=== PATIENT | female | born 1995 | race Two or more races ===

== ENCOUNTER 2018-03-04 22:34 | Emergency (ER) | payer MEDICAID ==
[~2018-03-04] VITALS: Ht 160 cm; Wt 99.8 kg
[2018-03-04 23:03] VITALS: BP 138/81
[2018-03-05] MEDS ORDERED: cefTRIAXone SOD 1,000 MG VL IM ONE (02:00)
[2018-03-05] MEDS ORDERED: LIDOCAINE 1% HCL (LOCAL ANESTH.) INJ 20ML MDV ONE (02:00)
[2018-03-05] MEDS ORDERED: TETANUS-DIPTH-ACEL PERTUSSIS 0.5ML SYRG IM ONE ×2 (02:00→02:07)
== END 2018-03-05 03:04 | disposition home or self-care (01) ==
LOC: ER 22:34
DX: S61.412A Laceration without foreign body of left hand, initial encounter (principal); W26.0XXA Contact with knife, initial encounter; Y93.89 Activity, other specified; Y99.8 Other external cause status; Y92.89 Other specified places as the place of occurrence of the external cause
CPT/HCPCS: 12042; 90471; 90715; 96372; 99284; J0696; J2001

== ENCOUNTER 2019-03-18 10:38 | Emergency (ER) | payer MEDICAID ==
[~2019-03-18] VITALS: Ht 160 cm; Wt 108.9 kg
[2019-03-18] MEDS ORDERED: ONDANSETRON ODT 4 MG TAB PO ONE (12:00)
[2019-03-18] MEDS ORDERED: HYDROcodone-ACET 10/325MG TAB PO ONE (12:00)
[2019-03-18] MEDS ORDERED: HYDROcodone-ACET 5/325MG TAB PO ONE (14:15)
[2019-03-18 15:35] VITALS: BP 113/79
== END 2019-03-18 15:03 | disposition home or self-care (01) ==
LOC: ER 10:38
DX: G44.209 Tension-type headache, unspecified, not intractable (principal); R11.10 Vomiting, unspecified
CPT/HCPCS: 70450; 99284; Q0162